=== PATIENT | male | born 1960 | race Caucasian/White ===

== ENCOUNTER → 2025-04-14 10:06 | Outpatient (BNVA) | payer OTHER, SELFPAY | PROVIDERS: PCP Nurse Practitioner; Referring Provider Nurse Practitioner; Visit Provider Psychiatry & Neurology Neurology | DX: R41.3 Other amnesia (principal) | CPT/HCPCS: 36415; 82233; 82234; 82306; 82542; 82607; 82746; 83520; 83735; 83921; 84439; 84443; 84481; 86592; 86780 ==

== ENCOUNTER 2025-05-24 09:02 | Outpatient (CLI) | payer OTHER, SELFPAY ==
--- NOTE | 2025-05-24 09:30 | MR_ITS ---
WS: [id number] MRI BRAIN WITH AND WITHOUT CONTRAST HISTORY: R41.3 - Other amnesia, memory loss for 15 years. COMPARISON: None available. TECHNIQUE: Multiplanar imaging performed through the brain with MultiHance 20 ml's IV. No acute infarcts are seen. Jorge-white matter differentiation is well preserved. Moderate scattered T2 and FLAIR signal hyperintensities in the supratentorial white matter. Predominantly within the frontal and parietal lobes and extending above the lateral ventricles. Slightly greater white matter disease on the RIGHT. There is a small lacunar infarct in the posterior RIGHT frontal lobe. No large infarct. No hemorrhage. No hemorrhage. Mild cerebral atrophy. Ventricles and extra-axial spaces are normal. Clivus and pituitary gland are normal. Visualized posterior fossa and brainstem are also normal. Postcontrast images are negative for masses or vascular malformations. Dural venous sinuses are normal. Paranasal sinuses: Mild mucoperiosteal thickening in the maxillary sinuses. No air-fluid levels. Mucous retention cyst in the floor the LEFT maxillary sinus. Mastoid air cells: Normal. Calvarium and scalp: Normal. MR/MR head wo/w con [id number] IMPRESSION: 1. Normal diffusion imaging. No acute infarct. 2. Mild cerebral atrophy. 3. Moderate T2 and FLAIR signal hyperintensities in the supratentorial white m atter, RIGHT greater than LEFT. Differential includes small vessel changes, hyp ertension, diabetes, smoking and migraines. Slightly more than expected for the patient's age. 4. Small lacunar infarct posterior RIGHT frontal lobe.
[2025-05-24] MEDS: gadobenate dimeglumine 20 mL vial IV (10:05)
--- NOTE | 2025-05-24 10:45 | USCV_ITS ---
Hiren Newsome Age: 64 Gender: M : 1960 Exam Date: 05/24/2025 10:27 Ordering Phys: Jeffy Gutierrez MD Technologist: Jose Cisneros [place] [facility] [place]: [place] Risk Factors: Previous Vascular Surgery: Right Brachial BP: / Left Brachial BP: / Right Left Velocity (cm/s) Spectral Plaque Velocity (cm/s) Spectral Plaque Syst/Diast Broadening Syst/Diast Broadening 69.40/ 16.60 Prox CCA 68.00 / 13.50 68.00/ 15.20 Mid CCA 63.90 / 17.60 66.60/ 13.80 Distal CCA 63.70 / 16.20 50.60/ 20.40 Prox ICA 37.80 / 11.60 62.90/ 24.50 Mid ICA 48.20 / 15.50 54.70/ 20.40 Distal ICA 48.00 / 14.00 57.60 ECA 52.70 0.90 ICA/CCA 0.80 Antegrade Vertebral Antegrade 30.00/ 8.10 cm/s 46.90/ 18.20 cm/s Tri Subclavian Tri 86.00 87.40 CONCLUSIONS Right ICA stenosis <50%. Mild atheromatous plaque right carotid bulb/ICA. Left ICA stenosis <50%. Mild atheromatous plaque left carotid bulb/ICA. Normal antegrade Doppler flow noted in the right vertebral artery. Normal antegrade Doppler flow noted in the left vertebral artery. Neftaly Hunter MD (Electronically Signed) Final Date: 24 May 2025 13:33 S
== END 2025-05-24 09:03 | disposition home or self-care (01) ==
LOC: RAD 09:05
PROVIDERS: PCP Nurse Practitioner; Visit Provider Psychiatry & Neurology Neurology
DX: R41.3 Other amnesia (principal); I65.23 Occlusion and stenosis of bilateral carotid arteries; G31.9 Degenerative disease of nervous system, unspecified; R90.82 White matter disease, unspecified; I67.89 Other cerebrovascular disease; Z72.0 Tobacco use; E11.59 Type 2 diabetes mellitus with other circulatory complications; I63.81 Other cerebral infarction due to occlusion or stenosis of small artery
CPT/HCPCS: 70553; 93880; A9577

== ENCOUNTER → 2025-06-23 11:36 | Outpatient (BNVA) | payer OTHER, SELFPAY | PROVIDERS: PCP Nurse Practitioner; Visit Provider Internal Medicine Cardiovascular Disease | DX: R07.9 Chest pain, unspecified (principal); R00.1 Bradycardia, unspecified; I49.1 Atrial premature depolarization; R94.31 Abnormal electrocardiogram [ECG] [EKG] | CPT/HCPCS: 93005 ==